=== PATIENT | male | born 1970 | race Caucasian/White ===

== ENCOUNTER 2021-04-16 14:01 | Inpatient (IN) | payer OTHER ==
[2021-04-16 21:04] VITALS: BMI 17.1
[2021-04-16] MEDS ORDERED: ACETAMINOPHEN 325 MG TABLET (FP) PO PRN (21:53)
[2021-04-16] MEDS ORDERED: guaiFENesin 200 MG/10 ML 10 ML UNIT-DOSE CUPS PO PRN (21:53)
[2021-04-16] MEDS ORDERED: P-EPHED 60MG/TRIPROLIDI 2.5MG TABLET PO PRN (21:53)
[2021-04-16] MEDS ORDERED: MAG HYDROX/AL HYDROX/SIMETH 30 ML UNIT-DOSE CUP PO PRN (21:53)
[2021-04-16] MEDS ORDERED: LOPERAMIDE HCL 2 MG CAPSULE PO PRN (21:53)
[2021-04-16] MEDS ORDERED: MAGNESIUM HYDROX 2400MG/30ML ORAL SUSPENSION 30 ML CUP PO PRN (21:53)
[2021-04-16] MEDS ORDERED: NICOTINE POLACRILEX 2 MG GUM BC PRN (21:53)
[2021-04-16] MEDS ORDERED: MAGNESIUM CITRATE 300 ML BOTTLE PO PRN (21:53)
[2021-04-17] MEDS: THIAMINE HCL 100 MG TABLET (FP) PO SCH ×2 (00:08→21:09)
[2021-04-17] MEDS: MELATONIN 5 MG TABLETS PO SCH ×2 (00:08→21:09)
[2021-04-17] MEDS: ALBUTEROL SO4 HFA INHALER IH PRN ×2 (06:56→17:30)
[2021-04-17] MEDS: NICOTINE 14 MG/24 HOURS TOPICAL PATCH TD SCH (10:28)
[2021-04-17] MEDS: PRENATAL VITAMINS W/ FOLIC ACID TABLET (FP) PO SCH (10:28)
[2021-04-17 13:27] LABS: HEMOGLOBIN 8.6 GM/dL (11.7-16.9); MCHC 28.7 g/dl (32.0-35.9); MEAN CELL VOLUME 58.2 fl (80-96); MEAN PLT VOLUME 8.8 fl (7.5-11.1); PLATELET COUNT 321 10^3/uL (134-434); RBC 5.15 M/mm3 (4.00-5.60); RDW 22.8 % (11.9-15.9); WHITE BLOOD COUNT 6.5 K/mm3 (4.0-10.0)
[2021-04-17 13:31] LABS: ALBUMIN 3.7 g/dl (3.4-5.0); CALCIUM 8.6 mg/dL (8.5-10.1); MCH 16.7 pg (25.7-33.7)
[2021-04-17 13:32] LABS: BLOOD UREA NITROGEN 20.5 mg/dL (7-18)
[2021-04-17 13:36] LABS: BILIRUBIN,TOTAL 0.1 mg/dL (0.2-1); CREATININE 0.9 mg/dL (0.55-1.3); TOT PROT 6.8 g/dl (6.4-8.2)
[2021-04-17] MEDS ORDERED: PENICILLIN G BENZATHINE 2,400,000 UNIT/4 ML PFS IM ONE (15:27)
[2021-04-17] MEDS: FERROUS SO4 325 MG TABLET (FP) PO SCH (17:15)
[2021-04-17] MEDS: ASCORBIC ACID 500 MG TABLET (FP) PO SCH (17:16)
[2021-04-17 18:18] LABS: PH,URINE 6.5 (5.0-8.0); URINE APPEARANCE CLEAR; URINE BILIRUBIN NEGATIVE (NEGATIVE); URINE COLOR YELLOW; URINE GLUCOSE (UA) NEGATIVE (NEGATIVE); URINE KETONE NEGATIVE (NEGATIVE); URINE LEUK ESTERASE NEGATIVE (NEGATIVE); URINE NITRITE NEGATIVE (NEGATIVE); URINE PROTEIN NEGATIVE (NEGATIVE); URINE UROBILINOGEN 0.2 mg/dL (0.2-1.0)
[2021-04-17] MEDS: DOCUSATE SODIUM 100 MG CAPSULE (FP) PO SCH (21:08)
[2021-04-18] MEDS: RITONAVIR 100 MG TABLET PO SCH (09:05)
[2021-04-18] MEDS: ATAZANAVIR SO4 300 MG CAPSULE PO SCH ×2 (09:45→12:07)
[2021-04-18] MEDS: FERROUS SO4 325 MG TABLET (FP) PO SCH ×2 (09:45→17:10)
[2021-04-18] MEDS: EMTRICITABINE 200MG/TENOFOVIR 300MG PO SCH (09:45)
[2021-04-18] MEDS: ASCORBIC ACID 500 MG TABLET (FP) PO SCH ×2 (09:46→17:11)
[2021-04-18] MEDS: NICOTINE 14 MG/24 HOURS TOPICAL PATCH TD SCH (09:47)
[2021-04-18] MEDS: PRENATAL VITAMINS W/ FOLIC ACID TABLET (FP) PO SCH (09:47)
[2021-04-18] MEDS ORDERED: BUDESONIDE/FORMETEROL FUMARATE 160/4.5 mcg INHALER IH SCH (10:00)
[2021-04-18] MEDS ORDERED: ATAZANAVIR SO4 200 MG CAPSULE PO SCH (10:00)
[2021-04-18] MEDS: DOCUSATE SODIUM 100 MG CAPSULE (FP) PO SCH (21:19)
[2021-04-18] MEDS: MELATONIN 5 MG TABLETS PO SCH (21:19)
[2021-04-18] MEDS: THIAMINE HCL 100 MG TABLET (FP) PO SCH (21:19)
[2021-04-18] MEDS: BUDESONIDE/FORMETEROL FUMARATE 160/4.5 mcg INHALER IH SCH (21:20)
[2021-04-19] MEDS: BUDESONIDE/FORMETEROL FUMARATE 160/4.5 mcg INHALER IH SCH ×2 (06:49→21:09)
[2021-04-19] MEDS: RITONAVIR 100 MG TABLET PO SCH (09:42)
[2021-04-19] MEDS: FERROUS SO4 325 MG TABLET (FP) PO SCH ×2 (09:43→17:05)
[2021-04-19] MEDS: PRENATAL VITAMINS W/ FOLIC ACID TABLET (FP) PO SCH (09:43)
[2021-04-19] MEDS: EMTRICITABINE 200MG/TENOFOVIR 300MG PO SCH (09:43)
[2021-04-19] MEDS: NICOTINE 14 MG/24 HOURS TOPICAL PATCH TD SCH (09:43)
[2021-04-19] MEDS: ASCORBIC ACID 500 MG TABLET (FP) PO SCH ×2 (09:43→17:05)
[2021-04-19] MEDS: ATAZANAVIR SO4 300 MG CAPSULE PO SCH (09:44)
[2021-04-19] MEDS: THIAMINE HCL 100 MG TABLET (FP) PO SCH (21:09)
[2021-04-19] MEDS: MELATONIN 5 MG TABLETS PO SCH (21:09)
[2021-04-19] MEDS: DOCUSATE SODIUM 100 MG CAPSULE (FP) PO SCH (21:09)
[2021-04-20] MEDS: BUDESONIDE/FORMETEROL FUMARATE 160/4.5 mcg INHALER IH SCH ×2 (06:42→21:43)
[2021-04-20] MEDS: ATAZANAVIR SO4 300 MG CAPSULE PO SCH (09:29)
[2021-04-20] MEDS: PRENATAL VITAMINS W/ FOLIC ACID TABLET (FP) PO SCH (09:29)
[2021-04-20] MEDS: ASCORBIC ACID 500 MG TABLET (FP) PO SCH ×2 (09:29→16:52)
[2021-04-20] MEDS: FERROUS SO4 325 MG TABLET (FP) PO SCH ×2 (09:29→16:52)
[2021-04-20] MEDS: NICOTINE 14 MG/24 HOURS TOPICAL PATCH TD SCH (09:30)
[2021-04-20] MEDS: EMTRICITABINE 200MG/TENOFOVIR 300MG PO SCH (09:30)
[2021-04-20] MEDS: RITONAVIR 100 MG TABLET PO SCH (09:30)
[2021-04-20] MEDS: MELATONIN 5 MG TABLETS PO SCH (21:42)
[2021-04-20] MEDS: DOCUSATE SODIUM 100 MG CAPSULE (FP) PO SCH (21:42)
[2021-04-20] MEDS: THIAMINE HCL 100 MG TABLET (FP) PO SCH (21:42)
[2021-04-21] MEDS: BUDESONIDE/FORMETEROL FUMARATE 160/4.5 mcg INHALER IH SCH ×2 (06:30→21:06)
[2021-04-21] MEDS: PRENATAL VITAMINS W/ FOLIC ACID TABLET (FP) PO SCH (09:57)
[2021-04-21] MEDS: ASCORBIC ACID 500 MG TABLET (FP) PO SCH ×2 (09:57→17:36)
[2021-04-21] MEDS: RITONAVIR 100 MG TABLET PO SCH (09:57)
[2021-04-21] MEDS: EMTRICITABINE 200MG/TENOFOVIR 300MG PO SCH (09:57)
[2021-04-21] MEDS: ATAZANAVIR SO4 300 MG CAPSULE PO SCH (09:58)
[2021-04-21] MEDS: NICOTINE 14 MG/24 HOURS TOPICAL PATCH TD SCH (09:58)
[2021-04-21] MEDS: FERROUS SO4 325 MG TABLET (FP) PO SCH ×2 (09:58→17:36)
[2021-04-21] MEDS: ALBUTEROL SO4 HFA INHALER IH PRN ×2 (09:59→17:40)
[2021-04-21] MEDS: DOCUSATE SODIUM 100 MG CAPSULE (FP) PO SCH (21:05)
[2021-04-21] MEDS: THIAMINE HCL 100 MG TABLET (FP) PO SCH (21:05)
[2021-04-21] MEDS: MELATONIN 5 MG TABLETS PO SCH (21:06)
[2021-04-22] MEDS: BUDESONIDE/FORMETEROL FUMARATE 160/4.5 mcg INHALER IH SCH ×2 (06:42→21:33)
[2021-04-22] MEDS: FERROUS SO4 325 MG TABLET (FP) PO SCH ×2 (08:41→17:35)
[2021-04-22] MEDS: ASCORBIC ACID 500 MG TABLET (FP) PO SCH ×2 (08:42→17:35)
[2021-04-22] MEDS: EMTRICITABINE 200MG/TENOFOVIR 300MG PO SCH (08:43)
[2021-04-22] MEDS: RITONAVIR 100 MG TABLET PO SCH (08:43)
[2021-04-22] MEDS: PRENATAL VITAMINS W/ FOLIC ACID TABLET (FP) PO SCH (09:41)
[2021-04-22] MEDS: NICOTINE 14 MG/24 HOURS TOPICAL PATCH TD SCH (09:44)
[2021-04-22] MEDS: ATAZANAVIR SO4 300 MG CAPSULE PO SCH (09:45)
[2021-04-22] MEDS: ALBUTEROL SO4 HFA INHALER IH PRN (09:47)
[2021-04-22] MEDS: THIAMINE HCL 100 MG TABLET (FP) PO SCH (21:33)
[2021-04-22] MEDS: DOCUSATE SODIUM 100 MG CAPSULE (FP) PO SCH (21:33)
[2021-04-22] MEDS: MELATONIN 5 MG TABLETS PO SCH (21:33)
[2021-04-23] MEDS: BUDESONIDE/FORMETEROL FUMARATE 160/4.5 mcg INHALER IH SCH ×2 (06:32→21:05)
[2021-04-23] MEDS: PRENATAL VITAMINS W/ FOLIC ACID TABLET (FP) PO SCH (09:50)
[2021-04-23] MEDS: EMTRICITABINE 200MG/TENOFOVIR 300MG PO SCH (09:50)
[2021-04-23] MEDS: ATAZANAVIR SO4 300 MG CAPSULE PO SCH (09:50)
[2021-04-23] MEDS: RITONAVIR 100 MG TABLET PO SCH (09:50)
[2021-04-23] MEDS: ASCORBIC ACID 500 MG TABLET (FP) PO SCH ×2 (09:51→17:21)
[2021-04-23] MEDS: FERROUS SO4 325 MG TABLET (FP) PO SCH ×2 (09:51→17:21)
[2021-04-23] MEDS: NICOTINE 14 MG/24 HOURS TOPICAL PATCH TD SCH (09:52)
[2021-04-23] MEDS: ALBUTEROL SO4 HFA INHALER IH PRN (09:52)
[2021-04-23] MEDS: THIAMINE HCL 100 MG TABLET (FP) PO SCH (21:04)
[2021-04-23] MEDS: MELATONIN 5 MG TABLETS PO SCH (21:04)
[2021-04-23] MEDS: DOCUSATE SODIUM 100 MG CAPSULE (FP) PO SCH (21:38)
[2021-04-24] MEDS: BUDESONIDE/FORMETEROL FUMARATE 160/4.5 mcg INHALER IH SCH ×2 (06:28→21:37)
[2021-04-24] MEDS: ATAZANAVIR SO4 300 MG CAPSULE PO SCH (09:58)
[2021-04-24] MEDS: FERROUS SO4 325 MG TABLET (FP) PO SCH ×2 (09:58→17:28)
[2021-04-24] MEDS: PRENATAL VITAMINS W/ FOLIC ACID TABLET (FP) PO SCH (09:59)
[2021-04-24] MEDS: EMTRICITABINE 200MG/TENOFOVIR 300MG PO SCH (09:59)
[2021-04-24] MEDS: RITONAVIR 100 MG TABLET PO SCH (09:59)
[2021-04-24] MEDS: ASCORBIC ACID 500 MG TABLET (FP) PO SCH ×2 (10:00→17:27)
[2021-04-24] MEDS: ALBUTEROL SO4 HFA INHALER IH PRN (10:01)
[2021-04-24] MEDS: NICOTINE 14 MG/24 HOURS TOPICAL PATCH TD SCH (10:08)
[2021-04-24] MEDS ORDERED: SULFAMETHOXAZOLE/TRIMETHOPRIM 800MG/160MG D.S. TABLET PO SCH (11:15)
[2021-04-24] MEDS: CEPHALEXIN MONOHYDRATE 500 MG CAPSULE (UD) PO SCH ×2 (12:23→21:35)
[2021-04-24] MEDS: BACITRACIN 0.9 GM PACKET TP SCH ×2 (14:23→21:37)
[2021-04-24] MEDS: MELATONIN 5 MG TABLETS PO SCH (21:36)
[2021-04-24] MEDS: THIAMINE HCL 100 MG TABLET (FP) PO SCH (21:36)
[2021-04-24] MEDS: DOCUSATE SODIUM 100 MG CAPSULE (FP) PO SCH (21:37)
[2021-04-25] MEDS: BUDESONIDE/FORMETEROL FUMARATE 160/4.5 mcg INHALER IH SCH ×2 (06:28→21:01)
[2021-04-25] MEDS: CEPHALEXIN MONOHYDRATE 500 MG CAPSULE (UD) PO SCH ×2 (09:55→21:00)
[2021-04-25] MEDS: EMTRICITABINE 200MG/TENOFOVIR 300MG PO SCH (09:55)
[2021-04-25] MEDS: FERROUS SO4 325 MG TABLET (FP) PO SCH ×2 (09:55→17:51)
[2021-04-25] MEDS: BACITRACIN 0.9 GM PACKET TP SCH ×2 (09:55→21:00)
[2021-04-25] MEDS: PRENATAL VITAMINS W/ FOLIC ACID TABLET (FP) PO SCH (09:56)
[2021-04-25] MEDS: ASCORBIC ACID 500 MG TABLET (FP) PO SCH ×2 (09:56→17:51)
[2021-04-25] MEDS: ATAZANAVIR SO4 300 MG CAPSULE PO SCH (09:56)
[2021-04-25] MEDS: RITONAVIR 100 MG TABLET PO SCH (09:56)
[2021-04-25] MEDS: NICOTINE 14 MG/24 HOURS TOPICAL PATCH TD SCH (09:56)
[2021-04-25] MEDS: ALBUTEROL SO4 HFA INHALER IH PRN (09:57)
[2021-04-25] MEDS: THIAMINE HCL 100 MG TABLET (FP) PO SCH (21:00)
[2021-04-25] MEDS: MELATONIN 5 MG TABLETS PO SCH (21:00)
[2021-04-25] MEDS: DOCUSATE SODIUM 100 MG CAPSULE (FP) PO SCH (21:00)
[2021-04-26] MEDS: BUDESONIDE/FORMETEROL FUMARATE 160/4.5 mcg INHALER IH SCH ×2 (07:17→21:33)
[2021-04-26] MEDS: ATAZANAVIR SO4 300 MG CAPSULE PO SCH (09:45)
[2021-04-26] MEDS: PRENATAL VITAMINS W/ FOLIC ACID TABLET (FP) PO SCH (09:45)
[2021-04-26] MEDS: RITONAVIR 100 MG TABLET PO SCH (09:45)
[2021-04-26] MEDS: EMTRICITABINE 200MG/TENOFOVIR 300MG PO SCH (09:46)
[2021-04-26] MEDS: CEPHALEXIN MONOHYDRATE 500 MG CAPSULE (UD) PO SCH ×2 (09:46→21:32)
[2021-04-26] MEDS: FERROUS SO4 325 MG TABLET (FP) PO SCH ×2 (09:46→16:45)
[2021-04-26] MEDS: BACITRACIN 0.9 GM PACKET TP SCH ×2 (09:46→21:32)
[2021-04-26] MEDS: ASCORBIC ACID 500 MG TABLET (FP) PO SCH ×2 (09:46→16:46)
[2021-04-26] MEDS: ALBUTEROL SO4 HFA INHALER IH PRN (09:47)
[2021-04-26] MEDS: NICOTINE 14 MG/24 HOURS TOPICAL PATCH TD SCH (10:36)
[2021-04-26] MEDS ORDERED: PT OWN MED DRAWER 7, Y5N ONE (16:45)
[2021-04-26] MEDS: DOCUSATE SODIUM 100 MG CAPSULE (FP) PO SCH (21:32)
[2021-04-26] MEDS: MELATONIN 5 MG TABLETS PO SCH (21:32)
[2021-04-26] MEDS: THIAMINE HCL 100 MG TABLET (FP) PO SCH (21:32)
[2021-04-27] MEDS ORDERED: PT OWN MED DRAWER 7, Y5N ONE (03:06)
[2021-04-27] MEDS: BUDESONIDE/FORMETEROL FUMARATE 160/4.5 mcg INHALER IH SCH ×2 (06:12→21:13)
[2021-04-27] MEDS: ASCORBIC ACID 500 MG TABLET (FP) PO SCH ×2 (09:29→17:03)
[2021-04-27] MEDS: NICOTINE 14 MG/24 HOURS TOPICAL PATCH TD SCH (09:29)
[2021-04-27] MEDS: EMTRICITABINE 200MG/TENOFOVIR 300MG PO SCH (09:29)
[2021-04-27] MEDS: PRENATAL VITAMINS W/ FOLIC ACID TABLET (FP) PO SCH (09:29)
[2021-04-27] MEDS: ATAZANAVIR SO4 300 MG CAPSULE PO SCH (09:30)
[2021-04-27] MEDS: CEPHALEXIN MONOHYDRATE 500 MG CAPSULE (UD) PO SCH ×2 (09:31→21:12)
[2021-04-27] MEDS: RITONAVIR 100 MG TABLET PO SCH (09:31)
[2021-04-27] MEDS: BACITRACIN 0.9 GM PACKET TP SCH ×2 (09:31→21:12)
[2021-04-27] MEDS: FERROUS SO4 325 MG TABLET (FP) PO SCH ×2 (09:31→17:02)
[2021-04-27] MEDS: MELATONIN 5 MG TABLETS PO SCH (21:12)
[2021-04-27] MEDS: THIAMINE HCL 100 MG TABLET (FP) PO SCH (21:12)
[2021-04-27] MEDS: DOCUSATE SODIUM 100 MG CAPSULE (FP) PO SCH (21:12)
[2021-04-28] MEDS: BUDESONIDE/FORMETEROL FUMARATE 160/4.5 mcg INHALER IH SCH ×2 (06:32→22:09)
[2021-04-28] MEDS: CEPHALEXIN MONOHYDRATE 500 MG CAPSULE (UD) PO SCH ×2 (10:05→21:36)
[2021-04-28] MEDS: FERROUS SO4 325 MG TABLET (FP) PO SCH ×2 (10:05→17:37)
[2021-04-28] MEDS: RITONAVIR 100 MG TABLET PO SCH (10:05)
[2021-04-28] MEDS: EMTRICITABINE 200MG/TENOFOVIR 300MG PO SCH (10:05)
[2021-04-28] MEDS: ATAZANAVIR SO4 300 MG CAPSULE PO SCH (10:06)
[2021-04-28] MEDS: BACITRACIN 0.9 GM PACKET TP SCH ×2 (10:06→21:37)
[2021-04-28] MEDS: PRENATAL VITAMINS W/ FOLIC ACID TABLET (FP) PO SCH (10:06)
[2021-04-28] MEDS: NICOTINE 14 MG/24 HOURS TOPICAL PATCH TD SCH (10:06)
[2021-04-28] MEDS ORDERED: PT OWN MED DRAWER 7, Y5N ONE (10:08)
[2021-04-28] MEDS: ASCORBIC ACID 500 MG TABLET (FP) PO SCH ×2 (12:47→17:36)
[2021-04-28] MEDS: IBUPROFEN 400 MG TABLET (FP) PO PRN (12:47)
[2021-04-28] MEDS: DOCUSATE SODIUM 100 MG CAPSULE (FP) PO SCH (21:36)
[2021-04-28] MEDS: THIAMINE HCL 100 MG TABLET (FP) PO SCH (21:36)
[2021-04-28] MEDS: MELATONIN 5 MG TABLETS PO SCH (21:36)
[2021-04-29] MEDS: BUDESONIDE/FORMETEROL FUMARATE 160/4.5 mcg INHALER IH SCH ×2 (06:21→21:12)
[2021-04-29] MEDS: ATAZANAVIR SO4 300 MG CAPSULE PO SCH (09:29)
[2021-04-29] MEDS: RITONAVIR 100 MG TABLET PO SCH (09:29)
[2021-04-29] MEDS: FERROUS SO4 325 MG TABLET (FP) PO SCH ×2 (09:29→18:09)
[2021-04-29] MEDS: EMTRICITABINE 200MG/TENOFOVIR 300MG PO SCH (09:29)
[2021-04-29] MEDS: CEPHALEXIN MONOHYDRATE 500 MG CAPSULE (UD) PO SCH ×2 (09:29→21:11)
[2021-04-29] MEDS: PRENATAL VITAMINS W/ FOLIC ACID TABLET (FP) PO SCH (09:29)
[2021-04-29] MEDS: NICOTINE 14 MG/24 HOURS TOPICAL PATCH TD SCH (09:30)
[2021-04-29] MEDS: BACITRACIN 0.9 GM PACKET TP SCH ×2 (09:30→21:11)
[2021-04-29] MEDS: ASCORBIC ACID 500 MG TABLET (FP) PO SCH ×2 (09:30→18:09)
[2021-04-29] MEDS ORDERED: PT OWN MED DRAWER 7, Y5N ONE (16:28)
[2021-04-29] MEDS: IBUPROFEN 400 MG TABLET (FP) PO PRN (21:11)
[2021-04-29] MEDS: THIAMINE HCL 100 MG TABLET (FP) PO SCH (21:11)
[2021-04-29] MEDS: DOCUSATE SODIUM 100 MG CAPSULE (FP) PO SCH (21:11)
[2021-04-29] MEDS: MELATONIN 5 MG TABLETS PO SCH (21:11)
[2021-04-30] MEDS: BUDESONIDE/FORMETEROL FUMARATE 160/4.5 mcg INHALER IH SCH ×2 (06:26→21:30)
[2021-04-30] MEDS: CEPHALEXIN MONOHYDRATE 500 MG CAPSULE (UD) PO SCH ×2 (10:11→21:29)
[2021-04-30] MEDS: EMTRICITABINE 200MG/TENOFOVIR 300MG PO SCH (10:11)
[2021-04-30] MEDS: FERROUS SO4 325 MG TABLET (FP) PO SCH ×2 (10:11→18:16)
[2021-04-30] MEDS: ATAZANAVIR SO4 300 MG CAPSULE PO SCH (10:11)
[2021-04-30] MEDS: RITONAVIR 100 MG TABLET PO SCH (10:11)
[2021-04-30] MEDS: BACITRACIN 0.9 GM PACKET TP SCH ×2 (10:12→21:29)
[2021-04-30] MEDS: NICOTINE 14 MG/24 HOURS TOPICAL PATCH TD SCH (10:12)
[2021-04-30] MEDS: PRENATAL VITAMINS W/ FOLIC ACID TABLET (FP) PO SCH (10:12)
[2021-04-30] MEDS: ASCORBIC ACID 500 MG TABLET (FP) PO SCH ×2 (10:12→18:16)
[2021-04-30] MEDS: IBUPROFEN 400 MG TABLET (FP) PO PRN (12:41)
[2021-04-30] MEDS: MELATONIN 5 MG TABLETS PO SCH (21:29)
[2021-04-30] MEDS: DOCUSATE SODIUM 100 MG CAPSULE (FP) PO SCH (21:29)
[2021-04-30] MEDS: THIAMINE HCL 100 MG TABLET (FP) PO SCH (21:29)
[2021-05-01] MEDS: BUDESONIDE/FORMETEROL FUMARATE 160/4.5 mcg INHALER IH SCH ×2 (06:16→21:12)
[2021-05-01 07:00] VITALS: PULSE 64
[2021-05-01] MEDS: ASCORBIC ACID 500 MG TABLET (FP) PO SCH ×2 (09:43→17:03)
[2021-05-01] MEDS: FERROUS SO4 325 MG TABLET (FP) PO SCH ×2 (09:43→17:03)
[2021-05-01] MEDS: PRENATAL VITAMINS W/ FOLIC ACID TABLET (FP) PO SCH (09:43)
[2021-05-01] MEDS: EMTRICITABINE 200MG/TENOFOVIR 300MG PO SCH (09:43)
[2021-05-01] MEDS: RITONAVIR 100 MG TABLET PO SCH (09:44)
[2021-05-01] MEDS: ATAZANAVIR SO4 300 MG CAPSULE PO SCH (09:44)
[2021-05-01] MEDS: NICOTINE 14 MG/24 HOURS TOPICAL PATCH TD SCH (09:44)
[2021-05-01] MEDS: BACITRACIN 0.9 GM PACKET TP SCH ×2 (09:44→21:12)
[2021-05-01] MEDS: ALBUTEROL SO4 HFA INHALER IH PRN ×2 (09:45→15:43)
[2021-05-01] MEDS: IBUPROFEN 400 MG TABLET (FP) PO PRN (15:42)
[2021-05-01] MEDS: DOCUSATE SODIUM 100 MG CAPSULE (FP) PO SCH (21:12)
[2021-05-01] MEDS: THIAMINE HCL 100 MG TABLET (FP) PO SCH (21:12)
[2021-05-01] MEDS: MELATONIN 5 MG TABLETS PO SCH (21:12)
[2021-05-02] MEDS: BUDESONIDE/FORMETEROL FUMARATE 160/4.5 mcg INHALER IH SCH (06:19)
[2021-05-02 07:00] VITALS: BP 120/76; TEMP 97.3
[2021-05-02] MEDS ORDERED: PT OWN MED DRAWER 7, Y5N ONE (08:45)
[2021-05-02] MEDS: PRENATAL VITAMINS W/ FOLIC ACID TABLET (FP) PO SCH (09:42)
[2021-05-02] MEDS: FERROUS SO4 325 MG TABLET (FP) PO SCH (09:42)
[2021-05-02] MEDS: BACITRACIN 0.9 GM PACKET TP SCH (09:42)
[2021-05-02] MEDS: EMTRICITABINE 200MG/TENOFOVIR 300MG PO SCH (09:44)
[2021-05-02] MEDS: ASCORBIC ACID 500 MG TABLET (FP) PO SCH (09:44)
[2021-05-02] MEDS: RITONAVIR 100 MG TABLET PO SCH (09:44)
[2021-05-02] MEDS: ATAZANAVIR SO4 300 MG CAPSULE PO SCH (09:44)
[2021-05-02] MEDS: NICOTINE 14 MG/24 HOURS TOPICAL PATCH TD SCH (09:45)
== END 2021-05-02 09:48 | disposition home or self-care (01) | DRG 895 ==
LOC: YASAS 14:01 → Y3W 22:09
PROVIDERS: ADMIT Allergy & Immunology; ATTEND Allergy & Immunology
PROC: HZ40ZZZ Group Counseling for Substance Abuse Treatment, Cognitive (ICD-10-PCS; principal; 2021-04-16)
DX: F14.20 Cocaine dependence, uncomplicated (principal); F33.9 Major depressive disorder, recurrent, unspecified; B20 Human immunodeficiency virus [HIV] disease; L03.114 Cellulitis of left upper limb; F17.210 Nicotine dependence, cigarettes, uncomplicated; J45.20 Mild intermittent asthma, uncomplicated; D64.9 Anemia, unspecified; A53.9 Syphilis, unspecified; R00.1 Bradycardia, unspecified
CPT/HCPCS: 36415; 80053; 81003; 85027; 86593; 86780; 93005; 93010; C9803; U0003; U0005